=== PATIENT | female | born 1995 | race Caucasian/White ===

== ENCOUNTER 2017-09-19 20:55 | Emergency (ER) | payer OTHER ==
[2017-09-19] MEDS ORDERED: NS 1,000 ML IV ONE (21:10)
--- NOTE | 2017-09-19 21:22 | CPEKG ---
Heart Rate: 71 RR Interval: 845 P-R Interval: 204 QRSD Interval: 92 QT Interval: 392 QTC Interval: 426 P [place]: 15 QRS [place]: 12 T Wave [place]: 0 EKG Severity - ABNORMAL ECG - EKG Impression: SINUS RHYTHM EKG Impression: NONSPECIFIC T ABNORMALITIES, ANTERIOR LEADS Electronically Signed By: Lisa Trujillo 19-Sep-2017 22:32:53
[2017-09-19 22:42] VITALS: BP 116/88
--- NOTE | 2017-09-19 22:42 | EDPHY ---
H & P Time Seen by Provider: 09/19/17 21:52 HPI/ROS: CHIEF COMPLAINT: Right quad pain, syncopal episode HISTORY OF PRESENT ILLNESS: Patient is a 22-year-old female who presents emergency department complaining of severe right quadriceps pain. The patient did yoga but yesterday which was uncomfortable. She then played kickball today. After giving the ball running to 1st base she developed severe pain in her right anterior quad. She went to the dog out and had a fainting episode. She denies striking her head her injuring herself during the fainting episode. She states she was out for less than 10 sec. EMS was called. While in route she felt"woozy."She denies having a 2nd syncopal episode. Patient states that she did have a single seizure episode previously. She states this was sleep related. She is not on anti seizure medication. She has ongoing right quad pain. It is moderate. It is worse with movement. No significant swelling. No numbness or tingling. REVIEW OF SYSTEMS: My complete review of systems is negative except as mentioned in the HPI. Past Medical/Surgical History: Denies Family history: No history of sudden Smoking Status: Never smoked Physical Exam: Vitals noted GENERAL: Well-appearing, in no acute distress, alert. HEENT: Eyes normal to inspection, normal pharynx, no signs of dehydration. NECK: No thyromegaly, no lymphadenopathy, supple. RESPIRATORY: Clear to auscultation bilaterally, no rales, rhonchi or wheezing. CVS: Regular rate and rhythm, no rubs, murmurs, or gallops. ABDOMEN: Soft, nontender, nondistended, no organomegaly. BACK: Normal to inspection, no CVA tenderness. SKIN: Normal color, no rash, warm, dry. No pallor. EXTREMITIES: Patient has right quad appears normal. She has mild tenderness to help palpation over the muscle belly her anterior quad. There is no palpable mass. Neurovascular intact distally. No pedal edema, no calf tenderness, no Homans sign or cords, no joint swelling. NEURO/PSYCH: Alert and oriented, normal mood and affect, normal motor sensory exam. No obvious cranial nerve deficit. Constitutional: Initial Vital Signs Temperature (C) 36.9 C 09/19/17 21:05 Heart Rate 78 09/19/17 21:05 Respiratory Rate 16 09/19/17 21:05 Blood Pressure 107/83 H 09/19/17 21:05 O2 Sat (%) 100 09/19/17 21:05 O2 Delivery Mode Room Air Allergies/Adverse Reactions: doxycycline [From Mondoxyne ] Allergy (Verified 09/19/17 21:07) Home Medications: Medication Instructions Recorded Birthcontrol 09/19/17 Medical Decision Making ED Course/Re-evaluation: In the emergency department I discussed possible etiologies with the patient. I answered all her questions. An EKG was ordered. Sinus rhythm at 71. Normal axis. Normal intervals. There are flipped T-waves V1 through V 3. I discussed the case with Dr. Lopez Flores from Cardiology. I reviewed the EKG findings. He feels this is not related to the patient's syncopal episode. He felt the patient could follow up as an outpatient. I discussed this with the patient. I answered all her questions. She will follow up with Orthopedics for her quadriceps injury. She was given a knee immobilizer for comfort. She was told to range her knee. She was given crutches for comfort. Differential Diagnosis: My differential includes but is not limited to muscle strain, quadriceps tear, contusion, syncope, ACS, acute NM, electrolyte abnormality, sugar abnormality, anemia - Data Points Medications Given: Discontinued Medications Sodium Chloride (Ns) 1,000 mls @ 0 mls/hr IV ONCE ONE PRN Reason: Wide Open Stop: 09/19/17 21:11 Last Admin: 09/19/17 21:14 Dose: 1,000 mls Departure - Departure Disposition: Home, Routine, Self-Care Clinical Impression: Injury of quadriceps muscle Syncope Qualifiers: Syncope type: unspecified Qualified Code(s): R55 - Syncope and collapse Condition: Good Instructions: Muscle Strain (ED), Syncope (ED) Additional Instructions: You need to arrange follow-up with Cardiology and Orthopedics. Dr. Flores is the director private on-call. Dr. Huerta is on-call for Orthopedics. Referrals: Stephen Huerta MD [Medical Doctor] - 5-7 days, call for appt. Lopez Flores MD [Medical Doctor] - 5-7 days, call for appt.
== END 2017-09-19 23:01 | disposition home or self-care (01) ==
DX: S76.101A Unspecified injury of right quadriceps muscle, fascia and tendon, initial encounter (principal); R55 Syncope and collapse; X58.XXXA Exposure to other specified factors, initial encounter; Y99.8 Other external cause status; Y93.6A Activity, physical games generally associated with school recess, summer camp and children